=== PATIENT | male | born 1950 | race Caucasian/White ===

== ENCOUNTER 2023-01-31 11:28 | Emergency (ER) | payer OTHER, MEDICAID ==
[~2023-01-31] VITALS: Ht 172.7 cm; Wt 62.8 kg
[2023-01-31 11:43] VITALS: BP 116/74
[2023-01-31 12:16] LABS: Urine Bacteria NONE SEEN /hpf (None Seen); Urine Blood 2+ /uL (Negative); Urine Hyaline Cast FEW /lpf (0 - 2); Urine Mucus FEW (None Seen); Urine WBC 3 /hpf (0 - 3)
[2023-01-31] MEDS ORDERED: HYDROcodone-ACET 5/325MG TAB PO ONE (14:00)
[2023-01-31] MEDS ORDERED: ACET500T58 PO (14:56)
== END 2023-01-31 15:12 | disposition home or self-care (01) ==
LOC: ER 11:28
DX: M54.16 Radiculopathy, lumbar region (principal); M54.59 Other low back pain
CPT/HCPCS: 72100; 73502; 81001